=== PATIENT | female | born 2000 | race Two or more races ===

== ENCOUNTER 2021-03-16 20:46 | Emergency (ER) | payer OTHER ==
[2021-03-17 01:29] LABS: HEMOGLOBIN 14.4 gm/dl (12.3-15.3); RED BLOOD COUNT 4.54 M/UL (4.00-5.10); WHITE BLOOD COUNT 14.9 K/UL (4.5-11.0)
[2021-03-17 01:48] LABS: BUN/CREATININE RATIO 28 (0-10)
[2021-03-17] MEDS ORDERED: IBUPROFEN600 MG PO (03:48)
[2021-03-17] MEDS ORDERED: ZOFRAN4 MG PO (03:48)
== END 2021-03-17 04:25 | disposition home or self-care (01) ==
LOC: ER1 20:46
PROVIDERS: Internal Medicine
DX: K59.00 Constipation, unspecified (principal); E86.0 Dehydration; E11.9 Type 2 diabetes mellitus without complications
CPT/HCPCS: 80053; 81001; 82962; 84702; 85025; 87086; 96374; 96375; 99285; J1885; J2405